=== PATIENT | female | born 1990 | race Caucasian/White ===

== ENCOUNTER 2021-01-21 16:00 | Outpatient (CLI) | payer BC ==
[2021-01-21 18:01] VITALS: BP 116/61; PULSE 89; RESP 16; TEMP 97.7
--- NOTE | 2021-01-22 07:28 | P.MSEPDOC ---
Presenting Problems - Arrival Data Date of Arrival on Unit: 01/21/21 Time of Arrival on Unit: 16:00 Mode of Transport: Ambulatory - Complaint OB-Reason for Admission/Chief Complaint: Possible Onset of Labor, Rule Out PROM Comment: SROM? 1200, contractions Medical History - Information : 4 Para: 2 Term: 2 : 0 Abortions: Spontaneous or Elective: 1 Number of Living Children: 2 - Gestational Age Gestational Age by ZHANG (wks/days): 35 Weeks and 4 Days - History Complications: Prior Comment: one previous Review of Systems - Review of Systems Constitutional: No problems Breast: No problems ENT: No problems Cardiovascular: No problems Respiratory: No problems Gastrointestinal: No problems Genitourinary: No problems Musculoskeletal: No problems Neurological: No problems Skin: No problems Vital Signs - Temperature Temperature: 97.7 F Temperature Source: Temporal Artery Scan - Pulse Right Brachial Pulse Rate: 89 Pulse Assessment Method: Automatic Cuff - Respirations Respiratory Rate: 16 Oxygen Delivery Method: Room Air O2 Sat by Pulse Oximetry: 97 - Blood Pressure Right Arm Sitting Blood Pressure: 116/61 Blood Pressure Mean: 79 Blood Pressure Source: Automatic Cuff Medical Screen Scoring - Cervical Exam Dilation (cm): 2 Effacement (%): 0 Station: -3 Membranes: Intact - Uterine Contractions Frequency From (mins): 3 Frequency To (mins): 5 Duration From (seconds): 60 Duration To (seconds): 90 Intensity: Moderate Resting: Soft to palpation - Assessment - Baby A Baseline FHR: 135 Heart Rate - NICHD Category: Category I (Normal) NST: Reactive Physician Notification - Physician Notified Physician Notified Date: 01/21/21 Physician Notified Time: 17:40 Physician: Narda Moura Order Received: Yes - Notification Comment Comment: no cervical climate change risk assessor one hour, d/c with instruction Maternal Triage Index - Maternal Triage Index Presenting for scheduled procedure w/no complaint: No - Stat/Priority 1 Stat Priority 1: No - Urgent/Priority 2 Urgent Priority 2: No - Prompt/Priority 3 Prompt Priority 3: Yes Criteria Met for Priority 3: >34 weeks, c/o srom and early signs of labor Disposition - Disposition OB Disposition: Triage, Discharge to home Discharge Date: 01/21/21 Discharge Time: 17:50 I agree with the RN Medical Screening Exam: Yes Case reviewed; plan agreed upon as documented in EMR&OBIX.: Yes Diagnosis: FALSE LABOR BEFORE 37 COMPLETED WEEKS OF GEST, THIRD TRI
== END 2021-01-21 17:50 | disposition home or self-care (01) ==
LOC: FBPOP 16:00
PROVIDERS: ATTEND Obstetrics & Gynecology
DX: O47.03 False labor before 37 completed weeks of gestation, third trimester (principal); Z3A.35 35 weeks gestation of pregnancy
CPT/HCPCS: 59025; 99213

== ENCOUNTER 2021-02-15 05:55 | Inpatient (IN) | payer BC, OTHER ==
[2021-02-15] MEDS ORDERED: LACTATED RINGERS 1,000 ML IV SCH (06:15)
[2021-02-15] MEDS ORDERED: LIDOCAINE 0.5% (PF) 5 MG/ML (50 ML SDV) SQ PRN (06:15)
[2021-02-15] MEDS ORDERED: OXYTOCIN 10 UNIT/ML 1 ML VIAL IM PRN (06:15)
[2021-02-15] MEDS ORDERED: AMPICILLIN 2,000 MG in SODIUM CHLORIDE 0.9% 100 ML IVPB STA (06:15)
[2021-02-15] MEDS ORDERED: CARBOPROST TROMETHAMINE 250 MCG/ML 1 ML AMP IM PRN (06:15)
[2021-02-15] MEDS ORDERED: METHYLERGONOVINE 0.2 MG/ML 1 ML AMP IM PRN (06:15)
[2021-02-15] MEDS ORDERED: TERBUTALINE 1 MG/ML VIAL SQ PRN (06:15)
[2021-02-15] MEDS ORDERED: OXYTOCIN 30 UNITS/500 ML NS 30 UNIT in SALINE 1 500ML.BAG IV SCH ×2 (06:15→12:23)
[2021-02-15 06:29] LABS: Basophils % (A) 0 %; Eosinophils # (A) 0.1 k/uL (0-0.7); Eosinophils % (A) 1 %; HCT 33.3 % (34.0-46.0); HGB 11.7 gm/dL (11.4-16.0); Lymphocytes % (A) 22 %; MCH 30.3 pg (25.0-35.0); MCV 86.6 fL (80.0-100.0); Mean Platelet Volume 9.9; Monocytes # (A) 0.6 k/uL (0-1.0); Monocytes % (A) 7 %; Neutrophils # (A) 6.2 k/uL (1.3-7.7); Neutrophils % (A) 68 %; Platelet Count 154 k/uL (150-450); RBC 3.85 m/uL (3.80-5.40); RDW 13.2 % (11.5-15.5)
--- NOTE | 2021-02-15 06:33 | P.HPOB ---
History of Present Illness H&P Date: 02/15/21 Chief Complaint: Requested induction of labor This patient is a pleasant 30-year-old 3 para 2 female estimated date of confinement 02/21/2021 estimated gestational age 39 and one sevenths weeks who presents to labor and delivery for requested induction of labor. Patient's had a previous successful and has requested repeat . 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 care has otherwise been uncomplicated. Patient is now uncomfortable and requested induction of labor. Review of Systems Genitourinary: Reports Menstruation: Reports amenorrhea Past Medical History Past Medical History: GERD/Reflux Additional Past Medical History / Comment(s): Patient's had 1 spontaneous miscarriage followed by a primary section for breech for a 7 lbs. 3 oz. baby girl. 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 History of Any Multi-Drug Resistant Organisms: None Reported Past Surgical History: Section, Hernia Repair Additional Past Surgical History / Comment(s): HERNIA REPAIR INFANT Past Anesthesia/Blood Transfusion Reactions: No Reported Reaction Additional Past Anesthesia/Blood Transfusion Reaction / Comment(s): PT WAS INFANT Past Psychological History: No Psychological Hx Reported Smoking Status: Never smoker Past Alcohol Use History: None Reported Past Drug Use History: None Reported - Past Family History Mother Family Medical History: Hypertension Additional Family Medical History / Comment(s): Son with congenital ichthyosis Medications and Allergies Home Medications Medication Instructions Recorded Confirmed Type Doxylamine Succinate [Unisom] 1 tab PO HS 02/15/21 02/15/21 History Allergies Allergy/AdvReac Type Severity Reaction Status Date / Time No Known Allergies Allergy Verified 02/15/21 06:14 Exam Intake and Output 02/14/21 02/14/21 02/15/21 14:59 22:59 06:59 Other: Weight 67.132 kg - OBG Physical Exam Abdomen: bowel sounds normal, no diffuse tenderness, no bruit present, no guarding noted, no hepatomegaly, no splenomegaly, no mass Vulva: both: normal Vagina: normal moisture, no discharge Cervix: no lesion (Cervix is 4 cm dilated 50% effaced -2 station.), no discharge Uterus: enlarged (Fundal height 38 cm) Results blood work shows she is O-, rubella immune, RPR nonreactive, hepatitis B negative, Glucola was normal, ultrasounds have been normal, RhoGAM was given on November 23, group B strep was positive Assessment and Plan Assessment: This is a pleasant 30-year-old 4 para 2 female estimated gestational age 39 and one sevenths weeks with previous successful wishes to repeat and then proceed with induction of labor. 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 Plan is antibiotic prophylaxis, induction of labor, and anticipate vaginal delivery (). (1) 39 weeks gestation of Current Visit: Yes Status: Acute Code(s): Z3A.39 - 39 WEEKS GESTATION OF SNOMED Code(s): 59073807 (2) Group B streptococcal carriage complicating Current Visit: Yes Status: Acute Code(s): O99.820 - STREPTOCOCCUS B CARRIER STATE COMPLICATING SNOMED Code(s): 287285077917479 (3) Previous delivery affecting Current Visit: No Status: Acute Code(s): O34.219 - MATERNAL CARE FOR UNSP TYPE SCAR FROM PREVIOUS DEL SNOMED Code(s): 717408998 (4) Rh negative status during Current Visit: Yes Status: Acute Code(s): O26.899 - OTH RELATED CONDITIONS, UNSPECIFIED TRIMESTER; Z67.91 - UNSPECIFIED BLOOD TYPE, RH NEGATIVE SNOMED Code(s): 277615052
[2021-02-15] MEDS ORDERED: SODIUM CHLORIDE 0.9% 100 ML BAG ONE (07:52)
[2021-02-15] MEDS ORDERED: fentaNYL (PF) 50 MCG/ML 5 ML AMP ONE (07:52)
[2021-02-15] MEDS ORDERED: ROPIVACAINE 5MG/ML 20ML VIAL ONE (07:52)
[2021-02-15] MEDS ORDERED: ROPIVACAINE 100 MG, fentaNYL (PF). 200 MCG in SODIUM CHLORIDE 0.9% 76 ML EPIDURAL ONE (08:26)
[2021-02-15] MEDS: AMPICILLIN 1,000 MG in SODIUM CHLORIDE 0.9% 50 ML IVPB SCH ×2 (11:20→21:39)
[2021-02-15] MEDS ORDERED: LANOLIN CREAM 5 GM TUBE TOPICAL PRN (12:23)
[2021-02-15] MEDS ORDERED: Rhogam IMMUNE GLOBULIN 1,500 UNIT/1 ML IM ONE (12:23)
[2021-02-15] MEDS ORDERED: diphenhydrAMINE 25 MG CAP PO PRN (12:23)
[2021-02-15] MEDS ORDERED: diphenhydrAMINE 50 MG/ML 1 ML VIAL IVP PRN (12:23)
[2021-02-15] MEDS ORDERED: ACETAMINOPHEN TAB 325 MG TAB PO PRN (12:23)
[2021-02-15] MEDS ORDERED: HYDROCORTISONE 2.5% RECTAL CREAM 30 GM TUBE RECTAL PRN (12:23)
[2021-02-15] MEDS ORDERED: SIMETHICONE 80 MG CHEWABLE PO PRN (12:23)
[2021-02-15] MEDS ORDERED: ZOLPIDEM 5 MG TAB PO PRN (12:23)
[2021-02-15] MEDS ORDERED: bisacodyL 10 MG SUPP RECTAL PRN (12:23)
[2021-02-15] MEDS ORDERED: BENZOCAINE/MENTHOL SPRAY 1 GM/SPRAY AEROSOL TOPICAL PRN (12:23)
--- NOTE | 2021-02-15 16:30 | P.PROBDLV ---
Vaginal Delivery Note - . Vaginal Delivery Note: Normal vaginal delivery () viable male Apgars 8 and 8 delivery time is 1129 hrs. Please see dictated H&P for intimate details of this patient's admission. Brief summary this is a pleasant 30-year-old 3 para 2 female 39 and one sevenths weeks gestation admitted to labor and delivery requesting induction of labor. Patient's first she had a for breech followed by a successful and she wishes to this time as well. Patient is admitted she is 4 cm dilated. She is artificial rupture membranes for clear fluid. Labor progresses and she does get to complete. Of note she had an epidural placed for pain control and listed need to be turned down is a little too dense. Patient pushes the head to the perineum. Posterior perineum is supported and we have controlled delivery of the 's head over the intact perineum. Mouth and nares are bulb suctioned. There is a very loose nuchal cord. With gentle downward traction we then have delivery the anterior and posterior shoulder and rest this 's body. This is a vigorous viable male infant. Apgars are 8 and 8 delivery time is 1129 hrs. has spontaneous respirations and cry and grossly appears normal. After delivery of the the is late on the mother's abdomen. After the cord is then pulsating is then doubly clamped and cut and appears to be trivascular. Cord blood is obtained for Rh status. Placenta is then spontaneously delivered intact. Estimated blood loss is 250 mL. Inspection of perineum shows second-degree laceration was repaired with 3-0 Vicryl in the usual fashion. Excellent reapproximation is noted. All counts are correct 3. There are no complications. Infant and mother are stable delivery room.
[2021-02-15] MEDS: SENNOSIDES-DOCUSATE SODIUM 1 EACH TAB PO PRN (19:45)
[2021-02-15] MEDS: IBUPROFEN 600 MG TAB PO PRN (19:45)
--- NOTE | 2021-02-16 05:47 | P.PNOBGVD ---
Subjective - Subjective Patient reports: Reports appetite normal, Reports voiding normally, Reports pain well controlled, Reports ambulating normally : doing well Objective - Latest Vital Signs Latest vital signs: Vital Signs Temp Pulse Resp BP Pulse Ox 02/16/21 00:00 97.8 F 80 18 111/70 100 02/15/21 20:00 98.3 F 90 18 103/64 98 02/15/21 16:00 98.3 F 89 16 114/72 02/15/21 13:19 85 16 116/63 02/15/21 12:48 83 18 106/58 02/15/21 12:33 93 17 113/61 02/15/21 12:18 94 16 117/59 02/15/21 12:03 96 17 117/69 02/15/21 11:49 98.1 F 99 16 122/62 02/15/21 11:48 98.3 F 99 16 122/62 02/15/21 06:14 97.0 F L 102 H 16 126/67 99 Intake and Output 02/15/21 02/15/21 02/16/21 14:59 22:59 06:59 Intake Total 171.9 Balance 171.9 Intake: Intake, IV Titration 171.9 Amount Oxytocin 30 Units/500 ml 171.9 Ns 30 unit In Saline 1 500ml.bag @ Per Protocol IV .Q0M [facility] Rx#:[id number] Other: # Voids 1 - Exam Lungs: bilateral: normal Chest: Normal S1, Normal S2 Extremities: Present: normal Abdomen: Present: normal appearance, soft Uterus: Present: normal, firm - Labs Labs: Abnormal Lab Results - Last 24 Hours (Table) 02/15/21 Range/Units 06:15 Hct 33.3 L (34.0-46.0) % Assessment and Plan Assessment: day #1. Patient is resting without complaints and wishes to go home. Vital signs are stable and she is afebrile. Uterus is firm nontender and she is having normal lochia. My impression this is a normal course. Plan is to continue routine care discharge home later today. (1) 39 weeks gestation of Current Visit: Yes Status: Acute Code(s): Z3A.39 - 39 WEEKS GESTATION OF SNOMED Code(s): 03125869 (2) Group B streptococcal carriage complicating Current Visit: Yes Status: Acute Code(s): O99.820 - STREPTOCOCCUS B CARRIER STATE COMPLICATING SNOMED Code(s): 918688004815850 (3) Previous delivery affecting Current Visit: No Status: Acute Code(s): O34.219 - MATERNAL CARE FOR UNSP TYPE SCAR FROM PREVIOUS DEL SNOMED Code(s): 311798956 (4) Rh negative status during Current Visit: Yes Status: Acute Code(s): O26.899 - OTH RELATED CONDITIONS, UNSPECIFIED TRIMESTER; Z67.91 - UNSPECIFIED BLOOD TYPE, RH NEGATIVE SNOMED Code(s): 757785017
--- NOTE | 2021-02-16 05:53 | P.DS ---
Providers Date of admission: 02/15/21 05:55 Expected date of discharge: 02/16/21 Attending physician: Sd Chao Primary care physician: Stated None - Discharge Diagnosis(es) (1) 39 weeks gestation of Current Visit: Yes Status: Acute (2) Group B streptococcal carriage complicating Current Visit: Yes Status: Acute (3) Previous delivery affecting Current Visit: No Status: Acute (4) Rh negative status during Current Visit: Yes Status: Acute Hospital Course: Please see dictated H&P for intimate details of this patient's admission. Brief summary is a pleasant 30-year-old 3 para 2 female 39 and one sevenths weeks gestation admitted to labor and delivery for requested induction of labor. Patient is admitted has successful for a viable male . Please see dictated delivery note. day #1 patient without complaints she wishes to go home. Patient's felt be stable for discharge home follow up with me in 6 weeks. Procedures: Vaginal after section Patient Condition at Discharge: Good Plan - Discharge Summary New Discharge Prescriptions: New Ibuprofen [Motrin] 600 mg PO Q6H PRN #30 tab PRN Reason: Pain No Action Doxylamine Succinate [Unisom] 1 tab PO HS Discharge Medication List Doxylamine Succinate [Unisom] 1 tab PO HS 02/15/21 [History] Ibuprofen [Motrin] 600 mg PO Q6H PRN #30 tab 02/16/21 [Rx] Follow up Appointment(s)/Referral(s): Sd Chao MD [STAFF PHYSICIAN] - 03/28/21 3:00 pm Patient Instructions/Handouts: Vaginal Delivery (DC) Activity/Diet/Wound Care/Special Instructions: No intercourse or anything per vagina for 6 weeks. These call if any fever, chills, excessive vaginal bleeding, and/or abdominal pain. Discharge Disposition: HOME SELF-CARE
[2021-02-16] MEDS: IBUPROFEN 600 MG TAB PO PRN (06:45)
[2021-02-16] MEDS: SENNOSIDES-DOCUSATE SODIUM 1 EACH TAB PO PRN (08:01)
[2021-02-16 08:39] VITALS: BP 99/66; PULSE 77; RESP 16; TEMP 98.2
== END 2021-02-16 13:25 | disposition home or self-care (01) | DRG 807 ==
LOC: 4FBP 05:55
PROVIDERS: ADMIT Obstetrics & Gynecology; ATTEND Obstetrics & Gynecology
PROC: 10E0XZZ Delivery of Products of Conception, External Approach (ICD-10-PCS; principal; 2021-02-15)
PROC: 0KQM0ZZ Repair Perineum Muscle, Open Approach (ICD-10-PCS; 2021-02-15)
DX: O34.219 Maternal care for unspecified type scar from previous cesarean delivery (principal); Z37.0 Single live birth; O26.893 Other specified pregnancy related conditions, third trimester; O69.81X0 Labor and delivery complicated by cord around neck, without compression, not applicable or unspecified; O70.1 Second degree perineal laceration during delivery; O99.824 Streptococcus B carrier state complicating childbirth; Z3A.39 39 weeks gestation of pregnancy; Z67.91 Unspecified blood type, Rh negative; Z82.49 Family history of ischemic heart disease and other diseases of the circulatory system
CPT/HCPCS: 85025; 85461; 86850; 86900; 86901

== ENCOUNTER 2021-10-12 18:56 | Emergency (ER) | payer OTHER ==
[2021-10-12 19:16] VITALS: RESP 18; TEMP 98.9
[2021-10-12 19:52] LABS: ALT 17 U/L (4-34); AST 21 U/L (14-36); African American GFR (CKD) >90 (>60 ml/min/1.73 sqM); Alkaline Phosphatase 64 U/L (38-126); Amylase 57 U/L (30-110); Anion Gap 10 mmol/L; Blood Urea Nitrogen 11 mg/dL (7-17); Calcium 9.6 mg/dL (8.4-10.2); Carbon Dioxide 26 mmol/L (22-30); Chloride 103 mmol/L (98-107); Glucose 94 mg/dL (74-99); Lipase 95 U/L (23-300); Non-African American GFR(CKD) >90 (>60 ml/min/1.73 sqM); Potassium 3.8 mmol/L (3.5-5.1); Sodium 139 mmol/L (137-145); Total Bilirubin 0.4 mg/dL (0.2-1.3); Total Protein 8.2 g/dL (6.3-8.2)
[2021-10-12 19:58] LABS: Basophils % (A) 0 %; Eosinophils # (A) 0.1 k/uL (0-0.7); Eosinophils % (A) 1 %; HGB 15.6 gm/dL (11.4-16.0); Lymphocytes # (A) 2.7 k/uL (1.0-4.8); Lymphocytes % (A) 38 %; MCH 29.4 pg (25.0-35.0); MCHC 33.2 g/dL (31.0-37.0); MCV 88.8 fL (80.0-100.0); Mean Platelet Volume 9.6; Monocytes # (A) 0.3 k/uL (0-1.0); Monocytes % (A) 4 %; Neutrophils # (A) 3.8 k/uL (1.3-7.7); Neutrophils % (A) 54 %; Platelet Count 221 k/uL (150-450); RBC 5.29 m/uL (3.80-5.40); RDW 12.7 % (11.5-15.5)
[2021-10-12 19:59] LABS: Appearance,Urine Clear (Clear); Bacteria,Urine Rare /hpf; Bilirubin,Urine Negative (Negative); Blood,Urine Moderate (Negative); Color,Urine Light Yellow; Glucose,Urine (UA) Negative (Negative); Hyaline Casts,Urine 1 /lpf (0-2); Ketones,Urine Negative (Negative); Leukocyte Esterase,Urine Negative (Negative); Mucus,Urine Rare /hpf; Nitrite,Urine Negative (Negative); Protein,Urine Negative (Negative); Specific Gravity,Urine 1.012 (1.001-1.035); Squamous Epithelial Cell,Urine 2 /hpf (0-4); Urobilinogen,Urine <2.0 mg/dL (<2.0); WBC,Urine <1 /hpf (0-5)
--- NOTE | 2021-10-12 20:04 | ED ---
Abdominal Pain HPI - General Chief Complaint: Abdominal Pain Stated Complaint: abd pain Time Seen by Provider: 10/12/21 19:46 Source: patient Mode of arrival: ambulatory Limitations: no limitations - History of Present Illness Initial Comments: Patient is a 31-year-old female presenting with chief complaint of abdominal pain. Pain is located in the right lower quadrant, sharp stabbing pain, rated a 6/10. Patient said it began has been gradually worsening throughout the day. It waxes and wanes. She has not taken any baji-krf-masryse pain medication. Pain does not change with position, exertion, or meals. Patient admits to some nausea. Patient denies chest pain, shortness of breath, vomiting, diarrhea, constipation, hematochezia, hemoptysis, cough, palpitations, fever, chills, headache, vision changes. - Related Data Home Medications Medication Instructions Recorded Confirmed No Known Home Medications 10/12/21 10/12/21 Allergies Allergy/AdvReac Type Severity Reaction Status Date / Time No Known Allergies Allergy Verified 10/12/21 21:12 Review of Systems ROS Statement: Those systems with pertinent positive or pertinent negative responses have been documented in the HPI. ROS Other: All systems not noted in ROS Statement are negative. Past Medical History Past Medical History: GERD/Reflux Additional Past Medical History / Comment(s): Patient's had 1 spontaneous miscarriage followed by a primary section for breech for a 7 lbs. 3 oz. baby girl. 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 History of Any Multi-Drug Resistant Organisms: None Reported Past Surgical History: Section, Hernia Repair Additional Past Surgical History / Comment(s): HERNIA REPAIR Past Anesthesia/Blood Transfusion Reactions: No Reported Reaction Additional Past Anesthesia/Blood Transfusion Reaction / Comment(s): PT WAS Past Psychological History: No Psychological Hx Reported Smoking Status: Never smoker Past Alcohol Use History: None Reported Past Drug Use History: None Reported - Past Family History Mother Family Medical History: Hypertension Additional Family Medical History / Comment(s): Son with congenital ichthyosis General Exam Limitations: no limitations General appearance: alert, in no apparent distress Head exam: Present: atraumatic, normocephalic, normal inspection Eye exam: Present: normal appearance, PERRL, EOMI. Absent: scleral icterus, c onjunctival injection, periorbital swelling Neck exam: Present: normal inspection Respiratory exam: Present: normal lung sounds bilaterally. Absent: respiratory distress, wheezes, rales, rhonchi, stridor Cardiovascular Exam: Present: regular rate, normal rhythm, normal heart sounds. Absent: systolic murmur, diastolic murmur, rubs, gallop, clicks GI/Abdominal exam: Present: soft, tenderness (RLQ), normal bowel sounds. Absent: distended, guarding, rebound, rigid Neurological exam: Present: alert, oriented X3, CN II-XII intact Psychiatric exam: Present: normal affect, normal mood Skin exam: Present: warm, dry, intact, normal color. Absent: rash Course Vital Signs 10/12/21 19:13 Temperature 98.9 F Pulse Rate 105 H Respiratory 18 Rate Blood Pressure 116/86 O2 Sat by Pulse 100 Oximetry Medical Decision Making - Medical Decision Making Patient is a 31-year-old female presenting with chief complaint of abdominal pain. Patient is localized right lower quadrant, sharp and stabbing in nature, it waxes and wanes throughout the day. Pain began today. Does not change with meals, exertion, or position. She has not taken any kcgr-xad-vjluwxi pain medication. Denies vomiting, diarrhea, constipation, hematochezia, fever, chills, chest pain, shortness of breath. On exam there is tenderness to the right lower quadrant, abdomen is soft, not distended, normal bowel sounds in all 4 quadrants. Symmetric showed a leukocytosis of is unremarkable. UA is remarkable for moderate blood, patient is on her menstrual cycle. Acute abdominal series shows no acute process. Ultrasound of appendix shows no free fluid appendix was not visualized. Pelvic ultrasound showed left sided ovarian cyst. When explained the findings, patient insisted upon abdominal CT, I educated her on the risks and benefits and patient opted to continue with CT. Abdominal CT showed no acute intra-abdominal process, appendix visualized. Pt was given 1 L normal saline fluid bolus and 15 mg IV push Toradol for pain control. Educated patient on findings and thoroughly discussed return parameters. Answered all questions. Follow up with PCP in one to 2 days. Patient conveyed verbal understanding and agreed to the plan. I attending is Dr. Rivers. - Lab Data Result diagrams: 10/12/21 19:31 10/12/21 19:31 Lab Results 10/12/21 10/12/21 10/12/21 Range/Units 19:31 19:31 19:31 WBC 7.0 (3.8-10.6) k/uL RBC 5.29 (3.80-5.40) m/uL Hgb 15.6 (11.4-16.0) gm/dL Hct 47.0 H (34.0-46.0) % MCV 88.8 (80.0-100.0) fL MCH 29.4 (25.0-35.0) pg MCHC 33.2 (31.0-37.0) g/dL RDW 12.7 (11.5-15.5) % Plt Count 221 (150-450) k/uL MPV 9.6 Neutrophils % 54 % Lymphocytes % 38 % Monocytes % 4 % Eosinophils % 1 % Basophils % 0 % Neutrophils # 3.8 (1.3-7.7) k/uL Lymphocytes # 2.7 (1.0-4.8) k/uL Monocytes # 0.3 (0-1.0) k/uL Eosinophils # 0.1 (0-0.7) k/uL Basophils # 0.0 (0-0.2) k/uL Sodium 139 (137-145) mmol/L Potassium 3.8 (3.5-5.1) mmol/L Chloride 103 (98-107) mmol/L Carbon Dioxide 26 (22-30) mmol/L Anion Gap 10 mmol/L BUN 11 (7-17) mg/dL Creatinine 0.75 (0.52-1.04) mg/dL Est GFR (CKD-EPI)AfAm >90 (>60 ml/min/1.73 sqM) Est GFR (CKD-EPI)NonAf >90 (>60 ml/min/1.73 sqM) Glucose 94 (74-99) mg/dL Calcium 9.6 (8.4-10.2) mg/dL Total Bilirubin 0.4 (0.2-1.3) mg/dL AST 21 (14-36) U/L ALT 17 (4-34) U/L Alkaline Phosphatase 64 (38-126) U/L Total Protein 8.2 (6.3-8.2) g/dL Albumin 5.0 (3.5-5.0) g/dL Amylase 57 (30-110) U/L Lipase 95 (23-300) U/L Urine Color Light Yellow Urine Appearance Clear (Clear) Urine pH 6.0 (5.0-8.0) Ur Specific [place] 1.012 (1.001-1.035) Urine Protein Negative (Negative) Urine Glucose (UA) Negative (Negative) Urine Ketones Negative (Negative) Urine Blood Moderate H (Negative) Urine Nitrite Negative (Negative) Urine Bilirubin Negative (Negative) Urine Urobilinogen <2.0 (<2.0) mg/dL Ur Leukocyte Esterase Negative (Negative) Urine WBC <1 (0-5) /hpf Ur Squamous Epith Cells 2 (0-4) /hpf Urine Bacteria Rare H (None) /hpf Hyaline Casts 1 (0-2) /lpf Urine Mucus Rare H (None) /hpf Urine HCG, Qual (Not Detectd) 10/12/21 Range/Units 20:06 WBC (3.8-10.6) k/uL RBC (3.80-5.40) m/uL Hgb (11.4-16.0) gm/dL Hct (34.0-46.0) % MCV (80.0-100.0) fL MCH (25.0-35.0) pg MCHC (31.0-37.0) g/dL RDW (11.5-15.5) % Plt Count (150-450) k/uL MPV Neutrophils % % Lymphocytes % % Monocytes % % Eosinophils % % Basophils % % Neutrophils # (1.3-7.7) k/uL Lymphocytes # (1.0-4.8) k/uL Monocytes # (0-1.0) k/uL Eosinophils # (0-0.7) k/uL Basophils # (0-0.2) k/uL Sodium (137-145) mmol/L Potassium (3.5-5.1) mmol/L Chloride (98-107) mmol/L Carbon Dioxide (22-30) mmol/L Anion Gap mmol/L BUN (7-17) mg/dL Creatinine (0.52-1.04) mg/dL Est GFR (CKD-EPI)AfAm (>60 ml/min/1.73 sqM) Est GFR (CKD-EPI)NonAf (>60 ml/min/1.73 sqM) Glucose (74-99) mg/dL Calcium (8.4-10.2) mg/dL Total Bilirubin (0.2-1.3) mg/dL AST (14-36) U/L ALT (4-34) U/L Alkaline Phosphatase (38-126) U/L Total Protein (6.3-8.2) g/dL Albumin (3.5-5.0) g/dL Amylase (30-110) U/L Lipase (23-300) U/L Urine Color Urine Appearance (Clear) Urine pH (5.0-8.0) Ur Specific [place] (1.001-1.035) Urine Protein (Negative) Urine Glucose (UA) (Negative) Urine Ketones (Negative) Urine Blood (Negative) Urine Nitrite (Negative) Urine Bilirubin (Negative) Urine Urobilinogen (<2.0) mg/dL Ur Leukocyte Esterase (Negative) Urine WBC (0-5) /hpf Ur Squamous Epith Cells (0-4) /hpf Urine Bacteria (None) /hpf Hyaline Casts (0-2) /lpf Urine Mucus (None) /hpf Urine HCG, Qual Not Detected (Not Detectd) - Radiology Data Radiology results: report reviewed Acute abdominal series: Nonacute abdomen Pelvic ultrasound: Left ovarian cyst Limited abdominal ultrasound: Appendix not visualized, no free fluid Abdominal and pelvic CT with contrast: No acute intra-abdominal process, L sided ovarian cyst Disposition Clinical Impression: Abdominal pain Disposition: HOME SELF-CARE Condition: Good Instructions (If sedation given, give patient instructions): Abdominal Pain (ED) Additional Instructions: Follow-up with PCP in one to 2 days. Take Motrin and Tylenol as needed for pain control. Report back to ER if worsening symptoms or new onset alarming symptoms, including but not limited to chest pain, shortness of breath, fever, chills, increased abdominal pain, vomiting, blood in stool, emesis or urine. Is patient prescribed a controlled substance at d/c from ED?: No Referrals: None,Stated [Primary Care Provider] - 1-2 days Time of Disposition: 23:24
--- NOTE | 2021-10-12 20:59 | XR ---
EXAMINATION TYPE: XR abdomen acute w cxr DATE OF EXAM: 10/12/2021 COMPARISON: NONE HISTORY: Pain TECHNIQUE: Supine, upright, and left side down lateral decubitus views of the abdomen are obtained. FINDINGS: There is no evidence for pneumoperitoneum. The bowel gas pattern is unremarkable as there is air throughout nondilated small and large bowel. No sizeable air fluid levels. No mass effects are seen. No unusual calcifications. Lungs are clear. Normal cardiomediastinal silhouette. No acute osseous ab normality. IMPRESSION: No acute process.
--- NOTE | 2021-10-12 22:25 | US ---
EXAMINATION TYPE: US abdomen APPY DATE OF EXAM: 10/12/2021 COMPARISON: NONE CLINICAL HISTORY: RLQ pain. RLQ pain for 1 day APPENDIX Appendix is not seen today on 31 y/o female patient. IMPRESSION: No discrete solid or cystic mass. Appendix not seen. No free fluid.
--- NOTE | 2021-10-12 22:27 | US ---
EXAMINATION TYPE: US pelvic complete DATE OF EXAM: 10/12/2021 COMPARISON: NONE CLINICAL HISTORY: RLQ pain. Patient complains of RLQ pain x 1 day TECHNIQUE: Transabdominal (TA). Date of LMP: 10/06/21 EXAM MEASUREMENTS: Uterus: 11.9 x 4.6 x 5.7 cm Endometrial Stripe: 0.95 cm Right Ovary: 2.3 x 2.1 x 1.7 cm Left Ovary: 4.4 x 3.2 x 3.4 cm 1. Uterus: Retroverted, retroflexed Appears wnl 2. Endometrium: wnl 3. Right Ovary: wnl 4. Left Ovary: Anechoic focus with enhancement measuring 3.2 x 2.3 x 2.2 cm Spectral, color and waveform doppler imaging shows good arterial and venous flow within the ovaries ; there is no evidence for ovarian torsion. 5. Bilateral Adnexa: wnl 6. Posterior cul-de-sac: wnl IMPRESSION: There is a 3.2 x 2.2 cm left ovarian cyst. No solid adnexal mass. No evidence of ovarian torsion. No free fluid.
[2021-10-12] MEDS ORDERED: SODIUM CHLORIDE 0.9% 1,000 ML IV ONE (22:35)
--- NOTE | 2021-10-12 23:12 | CT ---
EXAMINATION TYPE: CT abdomen pelvis w con DATE OF EXAM: 10/12/2021 COMPARISON: 09/16/2015 HISTORY: RLQ pain CT DLP: 600.5 mGycm Automated exposure control for dose reduction was used. CONTRAST: Performed with IV Contrast, patient injected with 100 mL of Isovue 300. Images obtained from the diaphragm through the floor the pelvis with IV contrast. Lung bases are clear. There is no pleural effusion. Heart size is normal. There is no pericardial eff usion. Liver spleen and stomach pancreas and gallbladder appear intact. Bile duct are not dilated. There is no adrenal mass. Kidneys show satisfactory contrast opacification. There is no hydronephrosi s. There is 3 cm cyst on the left ovary. The bladder distends smoothly. Uterus appears normal. Uterus retroverted. No free fluid in the pelvis. There is no inguinal hernia. There is no mesenteric edema. There is no ascites or free air. There is no bowel obstruction. Termina l ileum appears fairly normal. Appendix is medial and appears normal. The lumbar vertebrae have normal spacing and alignment. Posterior elements are intact. There is no co mpression fracture. Bony pelvis is intact. The hip joints are intact. IMPRESSION: Negative CT scan abdomen and pelvis. Normal appendix. Left ovarian cyst noted. Cyst appears new ca red to old exam.
[2021-10-12] MEDS ORDERED: KETOROLAC 15 MG/ML 1 ML VIAL IVP STA (23:19)
[2021-10-12 23:40] VITALS: BP 110/75; PULSE 70
== END 2021-10-12 23:40 | disposition home or self-care (01) ==
LOC: EC 18:56
DX: N83.202 Unspecified ovarian cyst, left side (principal); K21.9 Gastro-esophageal reflux disease without esophagitis
CPT/HCPCS: 36415; 74022; 74177; 76705; 76856; 80053; 81001; 81025; 82150; 83690; 85025; 93975; 99284

== ENCOUNTER 2023-11-17 07:54 | Emergency (ER) | payer OTHER ==
[2023-11-17 08:05] VITALS: RESP 18
--- NOTE | 2023-11-17 08:46 | US ---
EXAMINATION TYPE: US venous doppler duplex LE LT DATE OF EXAM: 11/17/2023 8:23 AM COMPARISON: NONE CLINICAL INDICATION: Female, 33 years old with history of pain; pain and swelling for 7 days, no h/o injury or DVT SIDE PERFORMED: Left TECHNIQUE: The lower extremity deep venous system is examined utilizing real time linear array sonog benson with graded compression, doppler sonography and color-flow sonography. VESSELS IMAGED: Common Femoral Vein Deep Femoral Vein Greater Saphenous Vein * Femoral Vein Popliteal Vein Small Saphenous Vein * Proximal Calf Veins (* superficial vessels) Left Leg: Negative for DVT IMPRESSION: No evidence of DVT in the left lower extremity.
--- NOTE | 2023-11-17 08:52 | ED ---
General Adult HPI - General Stated complaint: leg swelling Time Seen by Provider: 11/17/23 07:55 Source: patient, RN notes reviewed Mode of arrival: ambulatory Limitations: no limitations - History of Present Illness Initial comments: 33-year-old female presents emergency department complaint of left calf pain, leg swelling discomfort has been on and off for over a week. She concerned about possible DVT. No history denies any trauma states pain started initially behind her knee does have some radiating pain down her leg. She denies of back pain denies any bowel bladder incontinence retention no saddle anesthesias - Related Data Previous Rx's Medication Instructions Recorded Ondansetron Odt [Zofran ODT] 4 mg PO Q8HR PRN #10 tab 09/12/22 Allergies Allergy/AdvReac Type Severity Reaction Status Date / Time No Known Allergies Allergy Verified 11/17/23 08:00 Review of Systems ROS Statement: Those systems with pertinent positive or pertinent negative responses have been documented in the HPI. ROS Other: All systems not noted in ROS Statement are negative. Past Medical History Past Medical History: GERD/Reflux Additional Past Medical History / Comment(s): Patient's had 1 spontaneous miscarriage followed by a primary section for breech for a 7 lbs. 3 oz. baby girl. 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 History of Any Multi-Drug Resistant Organisms: None Reported Past Surgical History: Section, Hernia Repair Additional Past Surgical History / Comment(s): HERNIA REPAIR Past Anesthesia/Blood Transfusion Reactions: No Reported Reaction Additional Past Anesthesia/Blood Transfusion Reaction / Comment(s): PT WAS INFANT Past Psychological History: No Psychological Hx Reported Smoking Status: Never smoker Past Alcohol Use History: None Reported Past Drug Use History: None Reported - Past Family History Mother Family Medical History: Hypertension Additional Family Medical History / Comment(s): Son with congenital ichthyosis General Exam Limitations: no limitations General appearance: alert, in no apparent distress Head exam: Present: atraumatic, normocephalic, normal inspection Eye exam: Present: normal appearance, PERRL, EOMI. Absent: scleral icterus, conjunctival injection, periorbital swelling ENT exam: Present: normal exam, normal oropharynx, mucous membranes moist Neck exam: Present: normal inspection, full ROM. Absent: tenderness, meningismus, lymphadenopathy Respiratory exam: Present: normal lung sounds bilaterally. Absent: respiratory distress, wheezes, rales, rhonchi, stridor Cardiovascular Exam: Present: regular rate, normal rhythm, normal heart sounds. Absent: systolic murmur, diastolic murmur, rubs, gallop, clicks GI/Abdominal exam: Present: soft, normal bowel sounds. Absent: distended, tenderness, guarding, rebound, rigid Extremities exam: Present: calf tenderness, other (Minimal swelling neurovascular intact) Course Vital Signs 11/17/23 11/17/23 07:56 10:02 Temperature 97.8 F 98.0 F Pulse Rate 73 86 Respiratory 18 18 Rate Blood Pressure 110/77 116/68 O2 Sat by Pulse 100 100 Oximetry Medical Decision Making - Medical Decision Making Was pt. sent in by a medical professional or institution (YUSUF Fitzgerald, ANTHROPOLOGY AND ARCHEOLOGY INSTRUCTOR, urgent care, hospital, or custodial...) When possible be specific @ -No Did you speak to anyone other than the patient for history (EMS, parent, family, police, friend...)? What history was obtained from this source @ -No Did you review nursing and triage notes (agree or disagree)? Why? @ -I reviewed and agree with nursing and triage notes Were old charts reviewed (outside hosp., previous admission, EMS record, old EKG, old radiological studies, urgent care reports/EKG's, custodial records)? Report findings @ -No old charts were reviewed Differential Diagnosis (chest pain, altered mental status, abdominal pain women, abdominal pain men, vaginal bleeding, weakness, fever, dyspnea, syncope, headache, dizziness, GI bleed, back pain, seizure, CVA, palpatations, mental health, musculoskeletal)? @ -Leg pain leg edema sciatica, DVT EKG interpreted by me (3pts min.). @ -None X-rays interpreted by me (1pt min.). @ -None done CT interpreted by me (1pt min.). @ -None done U/S interpreted by me (1pt. min.). @ -Ultrasound venous Doppler left leg negative for acute DVT What testing was considered but not performed or refused? (CT, X-rays, U/S, labs)? Why? @ -None What meds were considered but not given or refused? Why? @ -None Did you discuss the management of the patient with other professionals (professionals i.e. Dr., PA, ANTHROPOLOGY AND ARCHEOLOGY INSTRUCTOR, lab, RT, psych nurse, clinical social work aide, phone screener, teacher, booking police officer, case therapist)? Give summary @ -No Was smoking cessation discussed for >3mins.? @ -No Was critical care preformed (if so, how long)? @ -No Were there social determinants of health that impacted care today? How? (Homelessness, low income, unemployed, alcoholism, drug addiction, transportation, low edu. Level, literacy, decrease access to med. care, intermediate, rehab)? @ -No Was there de-escalation of care discussed even if they declined (Discuss DNR or withdrawal of care, Hospice)? DNR status @ -No What co-morbidities impacted this encounter? (DM, HTN, Smoking, COPD, CAD, Cancer, CVA, ARF, Chemo, Hep., AIDS, mental health diagnosis, sleep apnea, morbid obesity)? @ -None Was patient admitted / discharged? Hospital course, mention meds given and route, prescriptions, significant lab abnormalities, going to OR and other pertinent info. @ -[Discharge patient has no evidence of DVT this may be related to lumbar radiculopathy or musculoskeletal pain will attempt supportive treatment Undiagnosed new problem with uncertain prognosis? @ -No Drug Therapy requiring intensive monitoring for toxicity (Heparin, Nitro, Insulin, Cardizem)? @ -No Were any procedures done? @ -No Diagnosis/symptom? @ -Leg pain Acute, or Chronic, or Acute on Chronic? @ -Acute Uncomplicated (without systemic symptoms) or Complicated (systemic symptoms)? @ -Uncomplicated Side effects of treatment? @ -No Exacerbation, Progression, or Severe Exacerbation? @ -No Poses a threat to life or bodily function? How? (Chest pain, [place], [place], pneumonia, PE, COPD, DKA, ARF, appy, cholecystitis, CVA, Diverticulitis, Homicidal, Suicidal, threat to staff... and all critical care pts) @ -No Disposition Clinical Impression: Left leg pain, Lumbar radicular pain, Leg edema, left Disposition: HOME SELF-CARE Condition: Stable Instructions (If sedation given, give patient instructions): Leg Pain (ED) Additional Instructions: Please return to the Emergency Department if symptoms worsen or any other concerns. Is patient prescribed a controlled substance at d/c from ED?: No Referrals: None,Stated [Primary Care Provider] - 1-2 days Time of Disposition: 08:52
[2023-11-17 10:05] VITALS: BP 116/68; PULSE 86; TEMP 98
== END 2023-11-17 10:02 | disposition home or self-care (01) ==
LOC: EC 07:54
DX: M54.16 Radiculopathy, lumbar region (principal)
CPT/HCPCS: 99283

== ENCOUNTER 2024-06-29 12:25 | Emergency (ER) | payer OTHER ==
[2024-06-29] MEDS: SODIUM CHLORIDE 0.9% 2,000 ML IV STA (12:59)
[2024-06-29] MEDS: KETOROLAC 15 MG/ML 1 ML VIAL IVP STA (13:00)
[2024-06-29] MEDS: diphenhydrAMINE 50 MG/ML 1 ML VIAL IVP STA (13:03)
[2024-06-29 13:07] LABS: Basophils % (A) 0 %; Eosinophils # (A) 0.2 k/uL (0-0.7); Eosinophils % (A) 2 %; HCT 46.7 % (34.0-46.0); HGB 15.1 gm/dL (11.4-16.0); Lymphocytes # (A) 0.3 k/uL (1.0-4.8); Lymphocytes % (A) 3 %; MCH 28.5 pg (25.0-35.0); MCHC 32.4 g/dL (31.0-37.0); MCV 88.1 fL (80.0-100.0); Mean Platelet Volume 8.9; Monocytes # (A) 0.4 k/uL (0-1.0); Monocytes % (A) 3 %; Neutrophils # (A) 12.1 k/uL (1.3-7.7); Neutrophils % (A) 93 %; Platelet Count 222 k/uL (150-450); RDW 12.4 % (11.5-15.5); WBC 13.1 k/uL (3.8-10.6)
[2024-06-29] MEDS: METOCLOPRAMIDE 5 MG/ML 2 ML VIAL IVP STA (13:10)
[2024-06-29 13:17] LABS: ALT 20 U/L (4-34); AST 25 U/L (14-36); African American GFR (CKD) >90 (>60 ml/min/1.73 sqM); Albumin 5.4 g/dL (3.5-5.0); Alkaline Phosphatase 73 U/L (38-126); Anion Gap 15 mmol/L; Blood Urea Nitrogen 16 mg/dL (7-17); Calcium 9.6 mg/dL (8.4-10.2); Carbon Dioxide 23 mmol/L (22-30); Chloride 108 mmol/L (98-107); Glucose 98 mg/dL (74-99); Magnesium 2.2 mg/dL (1.6-2.3); Non-African American GFR(CKD) >90 (>60 ml/min/1.73 sqM); Potassium 4.2 mmol/L (3.5-5.1); Sodium 146 mmol/L (137-145); Total Bilirubin 1.1 mg/dL (0.2-1.3); Total Protein 8.5 g/dL (6.3-8.2)
[2024-06-29 13:38] LABS: Appearance,Urine Clear (Clear); Bilirubin,Urine Negative (Negative); Blood,Urine Negative (Negative); Color,Urine Yellow; Glucose,Urine (UA) Negative (Negative); Ketones,Urine 2+ (Negative); Leukocyte Esterase,Urine Negative (Negative); Nitrite,Urine Negative (Negative); PH, Urine 7.5 (5.0-8.0); Protein,Urine Trace (Negative); Specific Gravity,Urine 1.026 (1.001-1.035); Urobilinogen,Urine <2.0 mg/dL (<2.0)
[2024-06-29 14:16] VITALS: PULSE 100
--- NOTE | 2024-06-29 14:34 | ED ---
Nausea/Vomiting/Diarrhea HPI - General Chief complaint: Nausea/Vomiting/Diarrhea Stated complaint: Vomiting Time Seen by Provider: 06/29/24 12:35 Source: patient, RN notes reviewed Mode of arrival: ambulatory Limitations: no limitations - History of Present Illness Initial comments: 34-year-old female presents emergency department chief complaint of nausea vomiting. Patient states has been vomiting throughout the night and throughout the day. Patient states she feels very dehydrated, dizzy at times. She denies any localized abdominal pain states she has generalized bodyaches and abdominal comfort. Denies any chance no sick contacts no other complaints. - Related Data Previous Rx's Medication Instructions Recorded Ondansetron Odt [Zofran ODT] 4 mg PO Q8HR PRN #10 tab 09/12/22 Ondansetron Odt [Zofran Odt] 4 mg PO Q8HR PRN #14 tab 06/29/24 Allergies Allergy/AdvReac Type Severity Reaction Status Date / Time No Known Allergies Allergy Verified 06/29/24 12:35 Review of Systems ROS Statement: Those systems with pertinent positive or pertinent negative responses have been documented in the HPI. ROS Other: All systems not noted in ROS Statement are negative. Past Medical History Past Medical History: GERD/Reflux Additional Past Medical History / Comment(s): Patient's had 1 spontaneous miscarriage followed by a primary section for breech for a 7 lbs. 3 oz. baby girl. 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 History of Any Multi-Drug Resistant Organisms: None Reported Past Surgical History: Section, Hernia Repair Additional Past Surgical History / Comment(s): HERNIA REPAIR INFANT Past Anesthesia/Blood Transfusion Reactions: No Reported Reaction Additional Past Anesthesia/Blood Transfusion Reaction / Comment(s): PT WAS INFANT Past Psychological History: No Psychological Hx Reported Smoking Status: Never smoker Past Alcohol Use History: Occasional Past Drug Use History: None Reported - Past Family History Mother Family Medical History: Hypertension Additional Family Medical History / Comment(s): Son with congenital ichthyosis General Exam Limitations: no limitations General appearance: alert, in no apparent distress Head exam: Present: atraumatic, normocephalic, normal inspection Neck exam: Present: normal inspection. Absent: tenderness, meningismus, lymphadenopathy Respiratory exam: Present: normal lung sounds bilaterally. Absent: respiratory distress, wheezes, rales, rhonchi, stridor Cardiovascular Exam: Present: normal rhythm, tachycardia, normal heart sounds. Absent: systolic murmur, diastolic murmur, rubs, gallop, clicks GI/Abdominal exam: Present: soft, tenderness (Use), normal bowel sounds. Absent: distended, guarding, rebound, rigid Course Vital Signs 06/29/24 06/29/24 06/29/24 12:35 14:15 14:54 Temperature 98.3 F 98.9 F 98.6 F Pulse Rate 131 H 100 100 Respiratory 20 18 16 Rate Blood Pressure 114/81 110/75 101/67 O2 Sat by Pulse 98 100 100 Oximetry Medical Decision Making - Medical Decision Making Was pt. sent in by a medical professional or institution (, PA, WILDLIFE ECOLOGY PROFESSOR, urgent care, hospital, or long term...) When possible be specific @ -No Did you speak to anyone other than the patient for history (EMS, parent, family, police, friend...)? What history was obtained from this source @ -No Did you review nursing and triage notes (agree or disagree)? Why? @ -I reviewed and agree with nursing and triage notes Were old charts reviewed (outside hosp., previous admission, EMS record, old EKG, old radiological studies, urgent care reports/EKG's, long term records)? Report findings @ -No old charts were reviewed Differential Diagnosis (chest pain, altered mental status, abdominal pain women, abdominal pain men, vaginal bleeding, weakness, fever, dyspnea, syncope, headache, dizziness, GI bleed, back pain, seizure, CVA, palpatations, mental health, musculoskeletal)? @ -Differential Abdominal Pain Women: Appendicitis, Cholecystitis, diverticulosis, ischemic bowel, pancreatitis, hepatitis, UTI, gastroenteritis, AAA, incarcerated hernia, bowel obstruction, constipation, inflammatory bowel, hepatitis, peptic ulcer disease, splenic infarction, perforated viscus, vulvitis, ovarian torsion, PID, kidney stone, placenta abruption, this is not meant to be an all-inclusive list EKG interpreted by me (3pts min.). @ -As above X-rays interpreted by me (1pt min.). @ -None done CT interpreted by me (1pt min.). @ -None done U/S interpreted by me (1pt. min.). @ -None done What testing was considered but not performed or refused? (CT, X-rays, U/S, labs)? Why? @ -None What meds were considered but not given or refused? Why? @ -None Did you discuss the management of the patient with other professionals (professionals i.e. , PA, WILDLIFE ECOLOGY PROFESSOR, lab, RT, psych nurse, hospital social worker, biogeographer, teacher, strike warfare/missile systems officer, showcase maker)? Give summary @ -No Was smoking cessation discussed for >3mins.? @ -No Was critical care preformed (if so, how long)? @ -No Were there social determinants of health that impacted care today? How? (Homelessness, low income, unemployed, alcoholism, drug addiction, transp ortation, low edu. Level, literacy, decrease access to med. care, care home, rehab)? @ -No Was there de-escalation of care discussed even if they declined (Discuss DNR or withdrawal of care, Hospice)? DNR status @ -No What co-morbidities impacted this encounter? (DM, HTN, Smoking, COPD, CAD, Cancer, CVA, ARF, Chemo, Hep., AIDS, mental health diagnosis, sleep apnea, morbid obesity)? @ -None Was patient admitted / discharged? Hospital course, mention meds given and route, prescriptions, significant lab abnormalities, going to OR and other pertinent info. @ -Discharge patient was given 2 L of fluids, antiemetics feels great improved this time. Patient likely has a viral illness, GI illness. Patient was discharged with antiemetics and return parameters russ. Undiagnosed new problem with uncertain prognosis? @ -No Drug Therapy requiring intensive monitoring for toxicity (Heparin, Nitro, Insulin, Cardizem)? @ -No Were any procedures done? @ -No Diagnosis/symptom? @ -Acute nausea vomiting Acute, or Chronic, or Acute on Chronic? @ -acute Uncomplicated (without systemic symptoms) or Complicated (systemic symptoms)? @ -uncomplicated Side effects of treatment? @ -No Exacerbation, Progression, or Severe Exacerbation? @ -No Poses a threat to life or bodily function? How? (Chest pain, [place], [place], pneumonia, PE, COPD, DKA, ARF, appy, cholecystitis, CVA, Diverticulitis, Homicidal, Suicidal, threat to staff... and all critical care pts) @ -No - Lab Data Result diagrams: 06/29/24 12:42 06/29/24 12:42 Lab Results 06/29/24 06/29/24 06/29/24 Range/Units 12:42 12:42 12:42 WBC 13.1 H (3.8-10.6) k/uL RBC 5.30 (3.80-5.40) m/uL Hgb 15.1 (11.4-16.0) gm/dL Hct 46.7 H (34.0-46.0) % MCV 88.1 (80.0-100.0) fL MCH 28.5 (25.0-35.0) pg MCHC 32.4 (31.0-37.0) g/dL RDW 12.4 (11.5-15.5) % Plt Count 222 (150-450) k/uL MPV 8.9 Neutrophils % 93 % Lymphocytes % 3 % Monocytes % 3 % Eosinophils % 2 % Basophils % 0 % Neutrophils # 12.1 H (1.3-7.7) k/uL Lymphocytes # 0.3 L (1.0-4.8) k/uL Monocytes # 0.4 (0-1.0) k/uL Eosinophils # 0.2 (0-0.7) k/uL Basophils # 0.0 (0-0.2) k/uL Sodium (137-145) mmol/L Potassium (3.5-5.1) mmol/L Chloride (98-107) mmol/L Carbon Dioxide (22-30) mmol/L Anion Gap mmol/L BUN (7-17) mg/dL Creatinine (0.52-1.04) mg/dL Est GFR (CKD-EPI)AfAm (>60 ml/min/1.73 sqM) Est GFR (CKD-EPI)NonAf (>60 ml/min/1.73 sqM) Glucose (74-99) mg/dL Calcium (8.4-10.2) mg/dL Magnesium (1.6-2.3) mg/dL Total Bilirubin (0.2-1.3) mg/dL AST (14-36) U/L ALT (4-34) U/L Alkaline Phosphatase (38-126) U/L Total Protein (6.3-8.2) g/dL Albumin (3.5-5.0) g/dL Urine Color Yellow Urine Appearance Clear (Clear) Urine pH 7.5 (5.0-8.0) Ur Specific Jbphh 1.026 (1.001-1.035) Urine Protein Trace H (Negative) Urine Glucose (UA) Negative (Negative) Urine Ketones 2+ H (Negative) Urine Blood Negative (Negative) Urine Nitrite Negative (Negative) Urine Bilirubin Negative (Negative) Urine Urobilinogen <2.0 (<2.0) mg/dL Ur Leukocyte Esterase Negative (Negative) Urine HCG, Qual Not Detected (Not Detectd) Influenza Type A (PCR) (Not Detectd) Influenza Type B (PCR) (Not Detectd) RSV (PCR) (Not Detectd) SARS-CoV-2 (PCR) (Not Detectd) 06/29/24 06/29/24 Range/Units 12:42 12:42 WBC (3.8-10.6) k/uL RBC (3.80-5.40) m/uL Hgb (11.4-16.0) gm/dL Hct (34.0-46.0) % MCV (80.0-100.0) fL MCH (25.0-35.0) pg MCHC (31.0-37.0) g/dL RDW (11.5-15.5) % Plt Count (150-450) k/uL MPV Neutrophils % % Lymphocytes % % Monocytes % % Eosinophils % % Basophils % % Neutrophils # (1.3-7.7) k/uL Lymphocytes # (1.0-4.8) k/uL Monocytes # (0-1.0) k/uL Eosinophils # (0-0.7) k/uL Basophils # (0-0.2) k/uL Sodium 146 H (137-145) mmol/L Potassium 4.2 (3.5-5.1) mmol/L Chloride 108 H (98-107) mmol/L Carbon Dioxide 23 (22-30) mmol/L Anion Gap 15 mmol/L BUN 16 (7-17) mg/dL Creatinine 0.62 (0.52-1.04) mg/dL Est GFR (CKD-EPI)AfAm >90 (>60 ml/min/1.73 sqM) Est GFR (CKD-EPI)NonAf >90 (>60 ml/min/1.73 sqM) Glucose 98 (74-99) mg/dL Calcium 9.6 (8.4-10.2) mg/dL Magnesium 2.2 (1.6-2.3) mg/dL Total Bilirubin 1.1 (0.2-1.3) mg/dL AST 25 (14-36) U/L ALT 20 (4-34) U/L Alkaline Phosphatase 73 (38-126) U/L Total Protein 8.5 H (6.3-8.2) g/dL Albumin 5.4 H (3.5-5.0) g/dL Urine Color Urine Appearance (Clear) Urine pH (5.0-8.0) Ur Specific Jbphh (1.001-1.035) Urine Protein (Negative) Urine Glucose (UA) (Negative) Urine Ketones (Negative) Urine Blood (Negative) Urine Nitrite (Negative) Urine Bilirubin (Negative) Urine Urobilinogen (<2.0) mg/dL Ur Leukocyte Esterase (Negative) Urine HCG, Qual (Not Detectd) Influenza Type A (PCR) Not Detected (Not Detectd) Influenza Type B (PCR) Not Detected (Not Detectd) RSV (PCR) Not Detected (Not Detectd) SARS-CoV-2 (PCR) Not Detected (Not Detectd) - EKG Data -: EKG Interpreted by Me EKG Comments: EKG performed at 13: 08 sinus tachycardia rate of 111 GA 144 QRS 88 QT/QTc 248/314 Disposition Clinical Impression: Gastroenteritis Disposition: HOME SELF-CARE Condition: Stable Instructions (If sedation given, give patient instructions): Acute Nausea and Vomiting (ED) Additional Instructions: Please return to the Emergency Department if symptoms worsen or any other concerns. Prescriptions: Ondansetron Odt [Zofran Odt] 4 mg PO Q8HR PRN #14 tab PRN Reason: Nausea Is patient prescribed a controlled substance at d/c from ED?: No Referrals: Charito Jay MD [Primary Care Provider] - 1-2 days Time of Disposition: 14:34
[2024-06-29] MEDS: ONDANSETRON 4 MG ODT STARTER PACK 2 TAB BTL PO STA (14:49)
[2024-06-29 14:55] VITALS: BP 101/67; RESP 16; TEMP 98.6
== END 2024-06-29 14:54 | disposition home or self-care (01) ==
LOC: EC 12:25
DX: K52.9 Noninfective gastroenteritis and colitis, unspecified (principal); Z11.52 Encounter for screening for COVID-19
CPT/HCPCS: 36415; 93005; 80053; 83735; 85025; 81003; 81025; 87636; 99284; 96374; 96375 ×2; 96361 ×2; J1200; J2765; J1885; S0119

== ENCOUNTER → 2024-07-18 | Outpatient (CLI) | payer OTHER ==
--- NOTE | 2024-07-18 18:34 | XR ---
EXAMINATION TYPE: XR Hip Complete LT DATE OF EXAM: 07/18/2024 10:05 AM COMPARISON: None. CLINICAL INDICATION: Female, 34 years old with history of M79.662 PAIN IN LOWER LEG, TECHNIQUE: 2 view(s) obtained. FINDINGS: Femoral head articulates with the acetabulum. Joint space is preserved. No acute fracture or dislocat ion evident. Follow-up the performed as clinically indicated. IMPRESSION: 1. No acute osseous abnormalities left hip [facility], , 07/18/2024 6:31 PM
--- NOTE | 2024-07-18 18:35 | XR ---
EXAMINATION TYPE: XR knee complete LT DATE OF EXAM: 07/18/2024 10:05 AM COMPARISON: None. CLINICAL INDICATION: Female, 34 years old with history of M79.662 PAIN IN LOWER LEG, TECHNIQUE: 3 view(s) obtained. FINDINGS: Joint spaces are preserved. No acute fracture or dislocation evident. No joint effusion is evident. F ollow-up can be performed as clinically indicated IMPRESSION: 1. No acute osseous abnormalities left knee [facility], , 07/18/2024 6:32 PM
--- NOTE | 2024-07-18 18:46 | XR ---
EXAMINATION TYPE: XR lumbar spine 2 or 3V DATE OF EXAM: 07/18/2024 10:05 AM COMPARISON: None. CLINICAL INDICATION: Female, 34 years old with history of M79.662 PAIN IN LOWER LEG, TECHNIQUE: 3 view(s) obtained. FINDINGS: There are 5 lumbar-type vertebral bodies. The pedicles are intact. Disc heights are preserved. Verteb ral body heights are preserved. Alignment is normal. IMPRESSION: 1. Unremarkable three-view lumbar spine [facility], , 07/18/2024 6:44 PM
--- NOTE | 2024-07-18 18:48 | XR ---
EXAMINATION TYPE: XR femur LT DATE OF EXAM: 07/18/2024 10:05 AM COMPARISON: None. CLINICAL INDICATION: Female, 34 years old with history of M79.662 PAIN IN LOWER LEG, TECHNIQUE: 2 view(s) obtained. FINDINGS: Knee joint spaces are preserved. No acute fractures or dislocations of the left femur. Follow-up can be performed as clinically indicated. IMPRESSION: 1. No acute osseous abnormality left femur [facility], , 07/18/2024 6:46 PM
== END | disposition home or self-care (01) ==
LOC: RADXRMAIN 09:24
PROVIDERS: ATTEND Internal Medicine Geriatric Medicine
DX: M79.662 Pain in left lower leg (principal)
CPT/HCPCS: 72100; 73502

== ENCOUNTER → 2024-08-12 | Outpatient (CLI) | payer OTHER ==
--- NOTE | 2024-08-12 16:48 | MR ---
EXAMINATION TYPE: MR lumbar spine wo con DATE OF EXAM: 08/12/2024 4:39 PM COMPARISON: 07/18/2024 2922. CLINICAL INDICATION: Female, 34 years old with history of M54.50 LOW BACK PAIN, UNSPECIFIED; PHH, Low back pain with left leg swelling/numbness x6 months TECHNIQUE: Multi planar, multi sequence imaging was performed utilizing: T1-weighted, T2-weighted, a nd turbo inversion recovery imaging of the lumbar spine. IV Contrast: (None, if empty) FINDINGS: Alignment: The lumbar vertebral bodies have preserved heights and alignment. Cord: The conus medullaris and the distal spinal cord appear unremarkable with regards to their signa l intensity and morphology. Bones/Discs: Minimal degeneration changes throughout the spine with osteophyte formation and facet sultana int arthropathy. Intervertebral disc signal is maintained. No abnormal inversion recovery signal to s uggest bony edema. T12-L1: No evidence of significant spinal canal stenosis or neural foraminal stenosis. L1-L2: No evidence of significant spinal canal stenosis or neural foraminal stenosis. L2-L3: No evidence of significant spinal canal stenosis or neural foraminal stenosis. L3-L4: No evidence of significant spinal canal stenosis or neural foraminal stenosis. L4-L5: No evidence of significant spinal canal stenosis or neural foraminal stenosis. L5-S1: The disc has a rounded posterior morphology without significant spinal canal stenosis. Facet j oint arthropathy with mild bilateral neural foraminal stenosis. No significant spinal canal or neural foraminal stenosis in the remainder of the visualized levels. Other findings: Right extrarenal pelvis. IMPRESSION: No definitive evidence of disc herniation or significant spinal canal stenosis. Minimal disc degeneration with associated osteoarthritic changes. [facility], , 08/12/2024 4:46 PM
== END | disposition home or self-care (01) ==
LOC: RADMRIMAIN 16:02
PROVIDERS: ATTEND Internal Medicine Geriatric Medicine
DX: M51.360 Other intervertebral disc degeneration, lumbar region with discogenic back pain only (principal); M47.816 Spondylosis without myelopathy or radiculopathy, lumbar region
CPT/HCPCS: 72148

== ENCOUNTER → 2024-08-13 | Outpatient (CLI) | payer OTHER ==
--- NOTE | 2024-08-18 18:11 | MR ---
EXAMINATION TYPE: MR tib fib LT wo con DATE OF EXAM: 08/13/2024 2:03 PM COMPARISON: . Plain film the 07/18/2024 CLINICAL INDICATION: Female, 34 years old with history of M79.662; PHH, Lt lower leg pain, tingling, and swelling TECHNIQUE: Multiplanar, multisequence technique was utilized in order to study and pre-and post contr ast images were obtained. No contrast was given FINDINGS: The bone marrow signal intensity is within normal limits. Soft tissues are grossly unremarkable. No evidence organizing fluid collection or soft tissue mass. Muscle volume is appropriate. IMPRESSION: 1. Symmetrical appearance of the legs No abnormal postcontrast enhancement. 2. No evidence for organizing fluid collection or mass. [facility], , 08/18/2024 6:09 PM
== END | disposition home or self-care (01) ==
LOC: RADMRIMAIN 13:35
PROVIDERS: ATTEND Internal Medicine Geriatric Medicine
DX: M79.662 Pain in left lower leg (principal)

== ENCOUNTER → 2024-10-02 | Outpatient (CLI) | payer OTHER ==
[2024-10-02 16:50] LABS: Influenza A Not Detected (Not Detectd); Influenza B Not Detected (Not Detectd); RSV Not Detected (Not Detectd)
== END | disposition home or self-care (01) ==
LOC: LAB 16:00
PROVIDERS: ATTEND Physician Assistant
DX: R50.9 Fever, unspecified (principal)
CPT/HCPCS: 87636